=== PATIENT | male | born 1955 | race Caucasian/White ===

== ENCOUNTER → 2023-06-27 | Outpatient (CLI) | payer MEDICARE, BC, SELFPAY ==
[2023-06-29 13:07] LABS: PSA, Free 0.69 ng/mL; PSA, Free % 10.1 % (.)
== END | disposition home or self-care (01) ==
LOC: LAB 14:56
PROVIDERS: PCP Family Medicine; Referring Provider Urology; Visit Provider Urology
DX: R97.20 Elevated prostate specific antigen [PSA] (principal)
CPT/HCPCS: 36415; 84153; 84154

== ENCOUNTER → 2023-08-11 | Outpatient (CLI) | payer MEDICARE, BC, SELFPAY ==
--- NOTE | 2023-08-11 08:00 | PROSBIL_PTH ---
PATIENT: DEENA GIVENS LOC: [facility] U#:[id number] AGE/SX: 68/M ROOM: RE08/11/[address]: Dr. Jaun Pham MD : 1955 BED: DIS: 08/11/2023 SPEC #: [id number] RECD: 08/12/23 10:18 STATUS: VIRGEN REQ #: [id number] CHER: 08/11/23 08:[address]: Jaun Pham DEPT: SURGICAL PATHOLOGY RECD BY: Johanna Graham ENTERED: 08/12/23 10:19 SP TYPE: PROST BX OT DR: Dr. Darvin Acosta MD Tissues: A - PROSTATE RIGHT B - PROSTATE RIGHT C - PROSTATE RIGHT D - PROSTATE LEFT E - PROSTATE LEFT F - PROSTATE LEFT Procedures: PROSTATE BX HEADER OPERATION: Prostate biopsy PRE-OP DIAGNOSIS: Elevated PSA TISSUE SUBMITTED: A - Right apex, B - Right mid, C - Right base, D - Left apex, E - Left mid, F - Left base MICROSCOPIC DIAGNOSIS A. Right prostate, apex, core biopsy: Prostatic adenocarcinoma. [place] grade: 3+3=6 Number of cores involved: 2/2 Proportion of tissue involved: 75% Perineural invasion: Present, focal. Greatest tumor length: 1.0 cm Focal high-grade prostatic intraepithelial neoplasia (HGPIN). Focal basal cell hyperplasia. B. Right prostate, mid, core biopsy: Prostatic adenocarcinoma. [place] grade: 3+3=6 Number of cores involved: 2/2 Proportion of tissue involved: ~25% Perineural invasion: Present, frequent. Greatest tumor length: 0.4 cm Focal high-grade prostatic intraepithelial neoplasia (HGPIN). C. Right prostate, base, core biopsy: Prostatic adenocarcinoma. [place] grade: 3+4=7 Number of cores involved: 2/2 Proportion of tissue involved: ~50% Perineural invasion: Suspected. Greatest tumor length: 0.3 cm D. Left prostate, apex, core biopsy: Atypical small acinar proliferation (YELENA). See comment. E. Left prostate, mid, core biopsy: Atypical small acinar proliferation (YELENA). See comment. F. Left prostate, base, core biopsy: Prostatic tissue, negative for malignancy. SJ:nick 08/16/2023 COMMENT D & E. Immunohistochemistry ([id number]) supports the above diagnosis. Case has been reviewed in consultation with Dr. Tinajero who concurs with the above diagnosis. IDC:AM MICROSCOPIC DESCRIPTION Slides are reviewed. GROSS DESCRIPTION A - Received is one container designated prostate, right apex. The specimen consists of two elongated fragments of light leslie-white soft tissue each measuring 1.5 cm in length and 0.1 cm in diameter. The specimen is totally submitted in one cassette. B - Received is one container designated prostate, right mid. The specimen consists of two elongated fragments of light leslie-white soft tissue each measuring 1.0 cm in length and 0.1 cm in diameter. The specimen is totally submitted in one cassette. C - Received is one container designated prostate, right base. The specimen consists of two elongated fragments of light leslie-white soft tissue each measuring 1.0 cm in length and 0.1 cm in diameter. The specimen is totally submitted in one cassette. D - Received is one container designated prostate, left apex. The specimen consists of two elongated fragments of light leslie-white soft tissue each measuring 0.8 cm in length and 0.1 cm in diameter. The specimen is totally submitted in one cassette. E - Received is one container designated prostate, left mid. The specimen consists of two elongated fragments of light leslie-white soft tissue each measuring 1.0 cm in length and 0.1 cm in diameter. The specimen is totally submitted in one cassette. F - Received is one container designated prostate, left base. The specimen consists of two elongated fragments of light leslie-white soft tissue each measuring 1.0 cm in length and 0.1 cm in diameter. The specimen is totally submitted in one cassette. / AM:nick 08/12/2023 TC:0 [facility]: [id number]
--- NOTE | 2023-08-15 | IMM_PTH ---
PATIENT: DEENA GIVENS LOC: [facility] U#:[id number] AGE/SX: 68/M ROOM: RE08/11/[address]: Dr. Jaun Pham MD : 1955 BED: DIS: 08/11/2023 SPEC #: [id number] RECD: 08/16/23 13:30 STATUS: VIRGEN REQ #: [id number] CHER: 08/15/23 00:[address]: Jaun Pham DEPT: IMMUNOHISTOCHEMISTRY RECD BY: Liat Schneider ENTERED: 08/16/23 13:39 SP TYPE: IMMUNO OTHR DR: Dr. Darvin Acosta MD Tissues: D - PROSTATE LEFT E - PROSTATE LEFT Procedures: 34BE12 (add) P40 (add) P40 (initial) PHYSICIAN & INSTITUTION [place] [id number] SPECIMEN INFORMATION: Tissue Source: D - Left prostate, apex, core biopsy, E - Left prostate, mid, core biopsy Clinical Info: Elevated PSA Specimen Number: [id number] D & E CPT code: 46367, 51245 x3 METHODOLOGY: Deparaffinized sections of prefer/formalin-fixed tissue or PAP/DQ stained slides are incubated with monoclonal/polyclonal antibodies/oligonucleotide probes. Localization is made via biotin free immunoperoxidase method. Appropriate controls are performed and reacted as expected. Results on target cell population are indicated in the following table: RESULTS: ANTIBODY / CLONE RESULT Block D 34BE12 (34BE12) negative P40 (BC28) negative Block E 34BE12 (34BE12) negative P40 (BC28) negative These tests were developed and their performance characteristics determined by [facility]. They may not have been cleared or approved by the U.[place]. Food and Drug Administration. The FDA has determined that such clearance or approval is not necessary. The above immunohistochemical/dualISH markers are ordered and reviewed by the Pathologist. INTERPRETATION: D. Left prostate, apex, core biopsy: Focal atypical small acinar proliferation (YELENA). E. Left prostate, mid, core biopsy: Focal atypical small acinar proliferation (YELENA). SJ:nick 08/17/2023
== END | disposition home or self-care (01) ==
LOC: LABSPEC 15:50
PROVIDERS: PCP Family Medicine; Referring Provider Urology; Visit Provider Urology
DX: R97.20 Elevated prostate specific antigen [PSA] (principal)
CPT/HCPCS: 88305; 88341; 88342; G0416

== ENCOUNTER → 2023-09-08 | Outpatient (CLI) | payer MEDICARE, BC, SELFPAY ==
--- NOTE | 2023-09-08 09:06 | NM_ITS ---
CLINICAL: Male, 68 years old. PROSTATE CA NEW DX -- NO PATIENT COMPLAINTS WHOLE BODY NUCLEAR BONE SCAN TECHNIQUE: Following the IV administration of 26 mCi of Tc MDP, whole body bone imaging was performed with a gamma camera following a three hour delay. COMPARISON STUDIES : NM - None. CR - Not available for review at this time. CT - Not available for review at this time. MR - Not available for review at this time. US - Not available for review at this time. FINDINGS: Mild increased radiopharmaceutical uptake at the level of the knee joint suggestive of concentration is seen on the left side of the symphysis pubis most likely due to urine contamination. Degenerative change. Increased radiopharmaceutical NM/Bone Scan Whole Body IMPRESSION: No definite evidence of metastatic disease. Electronically Signed: Mg Donato MD at 13:51 EST ,
== END | disposition home or self-care (01) ==
LOC: NM 09:00
PROVIDERS: PCP Family Medicine; Referring Provider Urology; Visit Provider Urology
DX: C61 Malignant neoplasm of prostate (principal); R97.20 Elevated prostate specific antigen [PSA]
CPT/HCPCS: 78306; A9503

== ENCOUNTER → 2023-09-09 | Outpatient (CLI) | payer MEDICARE, BC, SELFPAY ==
--- NOTE | 2023-09-09 13:15 | CT_ITS ---
STUDY: CT ABDOMEN AND PELVIS WITH AND WITHOUT CONTRAST REASON FOR EXAM: Male, 68 years old. PROSTATE CA RADIATION DOSAGE (If Supplied By Facility): CTDIvol = ( 24.64 ) mGy, DLP = ( 4296.46 ) mGycm TECHNIQUE: Transaxial images were obtained from the dome of the diaphragm to the symphysis pubis without oral contrast. IV 100mL Isovue-300 was administered. Sagittal and coronal images were reconstructed. Individualized dose optimization techniques were used for this CT. COMPARISON: None. FINDINGS: Minimal linear scarring at the lung bases. The visualized portions of the heart are within normal limits. There is decreased attenuation of the liver consistent with steatosis. Normal gallbladder and extrahepatic biliary system. Normal spleen. Normal pancreas. Normal bilateral adrenal glands. Normal right kidney. There is a 9.2 cm x 9.5 cm cyst in the lateral inferior pole of the left kidney. Normal visualized stomach. Normal small intestine. Normal colon. The appendix is visualized and appears normal. Normal abdominal aorta. Normal inferior vena cava. Normal retroperitoneum. Small volume urinary bladder with the thickened wall. There is enlargement of the prostate gland. The prostate measures 4.7 cm x 4.6 cm. Moderate left inguinal hernia containing fat. There is a 2.6 x 3.7 cm fatty lesion in the anterior muscle group in the right proximal thigh. There are diffuse degenerative changes of the visualized lumbar spine. CT/CT Abd/Pelvis W/WO Contrast IMPRESSION: Fatty infiltration of the liver. Left renal cyst. Left M1 artery containing fat. Electronically Signed: Mg Donato MD at 14:02 EST ,
[2023-09-09 13:30] LABS: CREATININE FINGERSTICK 1.2 mg/dL (0.70-1.30); EGFR FINGERSTICK > 60.0000 mL/min (>60)
== END | disposition home or self-care (01) ==
LOC: CT 12:59
PROVIDERS: PCP Family Medicine; Referring Provider Urology; Visit Provider Urology
DX: C61 Malignant neoplasm of prostate (principal)
CPT/HCPCS: 74178; Q9967

== ENCOUNTER 2023-10-12 05:38 | Day surgery (SDC) | payer MEDICARE, BC, SELFPAY ==
[2023-09-30 09:36] LABS: Hematocrit 52.6 % (40-54); Hemoglobin 17.8 g/dL (13.0-16.5); Mean Corp Hgb Conc 33.8 g/dL (32-36); Mean Corpuscular Volume 88.7 fL (80-94); Mean Platelet Vol. 8.8 fl (6.2-12.0); Platelet Count 214 K/mm3 (150-450); RBC Distribution Width CV 12.8 % (11.6-14.6); RBC Distribution Width SD 41.5 fl (35.1-43.9); Red Blood Count 5.93 M/mm3 (4.6-6.2); White Blood Count 5.6 K/mm3 (4.4-11.0)
[2023-10-12] VITALS (13 sets, daily range): BP systolic 103–132; BP diastolic 69–84; PULSE 68–87; RESP 12–96; TEMP 36.2–36.7; O2SAT 18–98; BMI 38.5; BMI 38.4
--- OUTSIDE RECORDS SUMMARY | 2023-10-12 05:48 | XMS RPT_ITS | CCD ---
Author Name Unknown Address [id number] [place] [address] Organization [facility] Care Team Providers Care Seismograph Operator Name Role Phone Sukhjinder Valle MD Unavailable AURA MCBRIDE MD Primary Care Unavailable AURA MCBRIDE MD Admitting Unavailable AURA SANCHEZ Referring Unavailable AURA SANCHEZ Consulting Unavailable AURA MCBRIDE MD Attending Unavailable PROVIDER, UNKNOWN Consulting Unavailable PROVIDER, UNKNOWN Consulting Unavailable PROVIDER, UNKNOWN Consulting Unavailable AURA SANCHEZ Attending Unavailable AURA SANCHEZ Consulting Unavailable AURA SANCHEZ Primary Care Unavailable AURA SANCHEZ Admitting Unavailable PROVIDER, UNKNOWN Consulting Unavailable PROVIDER, UNKNOWN Consulting Unavailable PROVIDER, UNKNOWN Consulting Unavailable Dave TRAN, Darvin Hernández Unavailable Briana TRAN, Dr. Jaime Inman Unavailable Ankit TRAN, [facility] Unavailable [facility], . Unavailable Dr. Sukhjinder Valle MD Unavailable Dr. Jeremi Lee MD Unavailable [phone] Markel BICYCLE REPAIRER, Annetta Unavailable Leon Nicolas MD Unavailable Gogoi (scribe), Hemanta Unavailable Unavaila Maira Reyes LPN Unavailable Unavailable Aura Sanchez MD Unavailable Alyse Grajeda Unavailable Unavailable Braeden SAENZ, Mikki Unavailable Unavailable Vickie WOODY, Riana Hernández Unavailable Unavaila yin Orr RN, Serenity Vela Unavailable Unavailable Pooja SAENZ, Kristine K Unavailable Unavai nancy REIDC, Rina Skaggs Unavailable Ángel Frausto), Je Unavailable Unavailab le Richert BICYCLE REPAIRER, Namrata Crys Unavailable Unavailab le Edy BICYCLE REPAIRER, Ana Paula Caballero Unavailable Unavailab le Newington BICYCLE REPAIRER, Daxa Dyer Unavailable Unavailab le Wengerd BICYCLE REPAIRER, Jeannine Unavailable Unavailabl e Pia BICYCLE REPAIRER, Gillian Medina Unavailable Unavaila ble Unavailable Unavailable Allergies Allergy Classification Reported Allergen(s) Allergy Type Date of Onset Reaction(s) Facility (1 source) Cat; Translations: [CATS] allergy to substance 0 [facility] Work Phone: (1 source) [employer]; Translations: [ANIMALS] allergy to substance 0 [facility] Work Phone: Medications Current Medications Medication Drug Class(es) Dates Sig (Normalized) Sig (Original) dextroamphetamine sulfate 10 mg extended release oral capsule (15 sources) Central Nervous System Stimulant Start: 09-07-2023 dextroamphetamine sulfate ER 10 mg capsule,extended release ; 1 (one) Capsule daily for 0 days Quantity: 30 {Capsule} Refills: 0 Ordered: 07-Sep-2023 MD Darvin Acosta Start: 07-Sep-2023 Completed/Discontinued Medications Medication Drug Class(es) Dates Sig (Normalized) Sig (Original) azithromycin 500 mg oral tablet (20 sources) Macrolide Antimicrobial Start: 11-14-2017 End: 11-17-2017 take 1 tablet by mouth once daily Azithromycin 500 MG Oral Tablet ; 1 (one) Tablet daily for 3 days Quantity: 3 {Tablet} Refills: 0 Ordered: 14-Nov-2017 MD Aura Sanchez Start: 14-Nov-2017 End: 17-Nov-2017 Status: Inactive Problems Active Problems Problem Classification Problem Date Documented Da te Episodic/Chronic Acute bronchitis (20 sources) Acute bronchitis; Translations: [Acute bronchitis, unspecified] 09-02-2016 Episodic Administrative/social admission (20 sources) Issue of repeat prescriptions 11-05-2014 Episodic Diabetes mellitus without complication (20 sources) Type 2 diabetes mellitus without complication; Translations: [Type 2 diabetes mellitus without complications] 08-10-2023 Chronic Past or Other Problems Problem Classification Problem Date Documented Da te Episodic/Chronic Diabetes mellitus without complication (1 source) Diabetes mellitus without complication 05-24-2022 Unclassified (1 source) Problem Unclassified (7 sources) cotton in ear - Pt was cleaning his ear and a piece of cotton got stuck in his ear. Pt denies it being painful or having any symptoms. 08-10-2023 Unclassified (6 sources) Well adult male - The patient feels well with no complaints, has decreased energy level and is sleeping well. The patient has a balanced diet. The patient does not exercise. The patient sleeps 7 (7-8) hours per night. Note for Well adult male : -Dr Lee treated for squamous cell carcinoma. 05-24-2022 Unclassified (6 sources) [ADDITIONAL REASON] [facility] Routine follow-up - The patient is here for follow-up of diabetes, obesity and narcolepsy. The patient always takes the prescribed medications. No side effects noted. (6 days a week- he isnt taking it on Tuesday) The patient has low activity level and no regular program. 05-24-2022 Unclassified (7 sources) [facility] Routine follow-up - The patient is here for follow-up of diabetes, obesity and narcolepsy. The patient always takes the prescribed medications. No side effects noted. (6 days a week- he isnt taking it on Tuesday) The patient has low activity level and no regular program. Note for Routine chronic follow-up : -transfer of care from [facility].He recently started an otc product for glucose control but does not know what it is called. 09-07-2021 Unclassified (7 sources) Well adult male - The patient feels well with no complaints, has decreased energy level and is sleeping well. The patient has a balanced diet. The patient does not exercise. The patient sleeps 7 (7-8) hours per night. Note for Well adult male : [place] 09/16/20labs printed 11-05-2020 Unclassified (7 sources) Back pain - The back pain has been occurring in a persistent pattern for 1 month (has had lower back issues for years). The course has been constant. The pain is characterized as a dull ache. The pain is located in the lower back (right side) and radiates to the right thigh. The symptoms are relieved by NSAIDs (ibuprofen). There has been no associated history of back surgery. Note for Back pain : Been seeing Dr. Genao for the back pain.--he recommended prednisone.Would like refill on medication today. 02-29-2020 Unclassified (7 sources) Well adult male - The patient feels well with minor complaints (has a cough), has good energy level and is sleeping well. The patient has a balanced diet and takes supplemental vitamins. The patient does not exercise. The patient sleeps 6 hours per night. Note for Well adult male : [place] 03/06/19labs printed 09-13-2019 Unclassified (7 sources) form completion - Patinet in for evaluation of cpap.Uses regularly with no issues. Tolerating well at the present. 10-12-2018 Unclassified (7 sources) Well Adult, male - The patient feels well with no complaints, has decreased energy level and is sleeping well. The patient has a balanced diet and takes supplemental vitamins. The patient does not exercise. The patient sleeps 7 hours per night. Note for Well Adult, male : Patient had his colonoscopy back in 2016.His blood pressure today is good 139/90. Otherwise, no other questions or concerns. 09-07-2018 Unclassified (7 sources) Cold Symptoms - Symptoms include dry cough, but do not include sneezing, nasal congestion, runny nose, ear pain, ear fullness, sore throat, fever, chills or general malaise. The onset was sudden 1 month(s) ago. The symptoms occur constantly. The patient describes this as moderate in severity and worsening. Current treatment includes cough suppressants (has been using cough drops). Patient denies history of seasonal allergies or asthma. 11-14-2017 Unclassified (7 sources) Cold Symptoms - Symptoms include nasal congestion, runny nose, dry cough and productive cough, but do not include ear pain, ear fullness, sore throat, scratchy throat, fever or headache. The onset was gradual 1 week(s) ago. The symptoms occur constantly. The patient describes this as moderate in severity and worsening. Current treatment includes an oral decongestant. Risk factors do not include child in daycare or smoking. The patient has not been exposed to an individual with a cough, an individual with an upper respiratory infection, an individual with similar symptoms or an individual with strep. 04-07-2017 Unclassified (7 sources) Well Adult, male - The patient feels well with no complaints, has good energy level and is sleeping well. The patient has a balanced diet and takes supplemental vitamins. The patient exercises weekly. The patient sleeps 8 hours per night. 09-02-2016 Unclassified (7 sources) Cold Symptoms - Symptoms include nasal congestion, runny nose, sore throat, scratchy throat, dry cough, productive cough and headache, but do not include fever. The onset was gradual 1 week(s) ago. The symptoms occur constantly. The patient describes this as moderate in severity and worsening. The patient is not currently being treated for this problem. Risk factors do not include child in daycare or smoking. Note for Upper respiratory infection : was on an overseas trip 03/06/16-03/14/16 03-24-2016 Unclassified (7 sources) Well Adult, male - The patient feels well with no complaints, has decreased energy level and is sleeping well. The patient has a balanced diet and takes supplemental vitamins. The patient does not exercise. The patient sleeps 7 hours per night. 06-16-2015 Unclassified (7 sources) Well Adult, male - The patient feels well with minor complaints (Concerned about increased shortness of breath upon exertion.), has decreased energy level and is sleeping well (Uses CPAP [place] nightly.). The patient has a balanced diet and takes supplemental vitamins. The patient does not exercise. The patient sleeps 7 hours per night. 09-25-2013 Unclassified (7 sources) Well Adult, male - The patient feels well with no complaints, has good energy level and is sleeping well. Date of most recent cholesterol screening : (03/27/12). Date of most recent glucose screening : (03/27/12). Date of Zostavax : (01/11/11). Patient has not had a Pneumovax vaccine. Patient has not received a recent influenza vaccine. Last Tetanus booster: Date: (02/09/2008). The patient has a balanced diet (recent garcia diet and has lost 12-13# in past month) and takes supplemental vitamins. Patient exercises weekly (walking, biking, skiing). Patient sleeps 7 hours per night. 03-31-2012 Unclassified (7 sources) Well adult male - The patient feels well with minor complaints (Cold symptoms. Runny nose, slight productive cough for 3 days.), has decreased energy level and is sleeping well. Date of most recent cholesterol screening : (01-07-11). Date of most recent glucose screening : (01-07-11). Patient has not had a Zostavax vaccine. Patient has not had a Pneumovax vaccine. Last Tetanus booster: Date: (). The patient has a balanced diet and takes supplemental vitamins. Patient exercises none (Had started walking 2 miles 3 times per week but is not consistant). Patient sleeps 7 hours per night. Note for Well adult male : Complains of occasional shortness of breath. 01-12-2011 Unclassified (1 source) [ADDITIONAL REASON] Well adult male - The patient feels well with no complaints, has decreased energy level and is sleeping well. The patient has a balanced diet. The patient does not exercise. The patient sleeps 7 (7-8) hours per night. Note for Well adult male : -Dr Lee treated for squamous cell carcinoma. 05-24-2022 Results Test Name Value Interpretation Reference Range Facil ity Vital Signs Date Time Vital Sign Value Performing Clinician Faci lity 08-10-2023 13:46-0500 Body height 179.07 cm [facility] [employer] 08-10-2023 13:46-0500 Body mass index (BMI) [Ratio] 39.04 kg/m2 Ana Paula Snow LPN [facility] [employer] 08-10-2023 13:46-0500 Body surface area Derived from formula 2.41 m2 Ana Paula Snow LPN [facility] [employer] 08-10-2023 13:46-0500 Body weight 125.19 kg Ana Paula Snow LPN [facility] [employer] 08-10-2023 13:46-0500 Diastolic blood pressure 82 mm[Hg] Ana Paula Snow LPN [facility] [employer] Encounters Encounter Date Encounter Type Care Provider Facility Start: 09-29-2023 End: 09-29-2023 Ale Acosta MD Work Phone: [facility] Start: 08-10-2023 End: 08-10-2023 Patient encounter procedure Darvin Acosta MD Work Phone: [facility] Start: 06-06-2023 End: 06-06-2023 Patient encounter procedure Darvin Acosta MD Work Phone: [facility] Start: 06-06-2023 End: 06-06-2023 Physical examination Darvin Acosta MD Work Phone: [facility]; [employer] Start: 05-23-2023 End: 05-25-2023 Orders Darvin Acosta MD Work Phone: [facility] Start: 04-29-2023 End: 04-29-2023 Orders Darvin Acosta MD Work Phone: [facility] Start: 04-20-2023 End: 04-20-2023 Orders Darvin Acosta MD Work Phone: [facility] Start: 11-01-2022 End: 11-01-2022 Office outpatient visit 25 minutes Darvin Acosta MD Work Phone: [facility] Start: 05-24-2022 End: 05-19-2022 Historical Summary Darvin Acosta MD Work Phone: [employer] Start: 05-24-2022 End: 05-24-2022 Patient encounter procedure Darvin Acosta MD Work Phone: [facility] Start: 05-24-2022 End: 05-24-2022 Patient encounter status Darvin Acosta MD Work Phone: [facility]; [employer]. Start: 05-17-2022 End: 05-17-2022 Orders Darvin Acosta MD Work Phone: [facility] Start: 05-14-2022 End: 09-16-2022 Historical Summary Darvin Acosta MD Work Phone: [facility] Start: 09-07-2021 End: 09-07-2021 Patient encounter procedure Darvin Acosta MD Work Phone: [employer] Start: 11-05-2020 End: 11-05-2020 Patient encounter procedure AURA SANCHEZ [facility] Start: 10-30-2020 End: 11-05-2020 Patient encounter status Darvin Acosta MD Work Phone: [facility]; [facility] Start: 10-30-2020 End: 11-05-2020 Periodic preventive med est patient 40-64yrs Darvin Acosta MD Work Phone: [employer] Start: 10-23-2020 End: 10-23-2020 Orders Darvin Acosta MD Work Phone: [employer] Start: 09-16-2020 End: 09-17-2020 Patient encounter procedure Darvin Acosta MD Work Phone: [employer] Start: 05-06-2020 End: 05-06-2020 Orders Darvin Acosta MD Work Phone: [employer] Start: 04-04-2020 End: 04-04-2020 Patient encounter procedure Sukhjinder Valle MD Work Phone: [facility] Work Phone: Start: 03-11-2020 End: 03-11-2020 Office outpatient visit 15 minutes Darvin Acosta MD Work Phone: [employer] Start: 03-06-2020 End: 03-06-2020 Telephone follow-up Darvin Acosta MD Work Phone: [employer] Start: 03-03-2020 End: 03-04-2020 Patient encounter procedure AURA MCBRIDE [facility] Start: 02-28-2020 End: 02-29-2020 Office outpatient visit 25 minutes Darvin Acosta MD Work Phone: [employer] Start: 09-11-2019 End: 09-13-2019 Patient encounter status Darvin Acosta MD Work Phone: [employer]; [employer]. Start: 09-11-2019 End: 09-13-2019 Periodic preventive med est patient 40-64yrs Darvin Acosta MD Work Phone: [employer]. Start: 09-03-2019 End: 09-06-2019 Orders Darvin Acosta MD Work Phone: [employer] Start: 08-03-2019 End: 08-08-2019 Orders Darvin Acosta MD Work Phone: [employer] Start: 03-06-2019 End: 03-06-2019 Office outpatient visit 25 minutes Darvin Acosta MD Work Phone: [employer] Start: 10-12-2018 End: 10-12-2018 Office outpatient visit 15 minutes Darvin Acosta MD Work Phone: [employer] Start: 09-07-2018 End: 09-07-2018 Periodic preventive med est patient 40-64yrs Darvin Acosta MD Work Phone: [employer] Start: 09-07-2018 End: 09-07-2018 Physical examination Darvin Acosta MD Work Phone: [employer]; [employer]. Start: 08-31-2018 End: 08-31-2018 Orders Darvin Acosta MD Work Phone: [employer] Start: 08-11-2018 End: 08-11-2018 Orders Darvin Acosta MD Work Phone: [employer] Start: 11-14-2017 End: 11-14-2017 Office outpatient visit 15 minutes Darvin Acosta MD Work Phone: [employer] Start: 09-16-2017 End: 09-23-2017 Historical Summary Darvin Acosta MD Work Phone: [employer] Start: 09-16-2017 End: 09-23-2017 Patient encounter status Darvin Acosta MD Work Phone: [employer]; [employer]. Start: 09-16-2017 End: 09-23-2017 Periodic preventive med est patient 40-64yrs Darvin Acosta MD Work Phone: [employer]. Start: 09-09-2017 End: 09-09-2017 Orders Darvin Acosta MD Work Phone: [employer] Start: 08-31-2017 End: 08-31-2017 Orders Darvin Acosta MD Work Phone: [employer] Start: 04-07-2017 End: 04-07-2017 Office outpatient visit 15 minutes Darvin Acosta MD Work Phone: [employer] Start: 09-02-2016 End: 09-02-2016 Patient encounter procedure Darvin Acosta MD Work Phone: [employer] Start: 09-02-2016 End: 09-02-2016 Patient encounter status Darvin Acosta MD Work Phone: [employer]; [employer]. Start: 08-09-2016 End: 08-09-2016 Orders Darvin Acosta MD Work Phone: [employer] Start: 03-23-2016 End: 03-24-2016 Office outpatient visit 15 minutes Darvin Acosta MD Work Phone: [employer] Start: 11-13-2015 End: 11-13-2015 Medication Darvin Acosta MD Work Phone: [employer] Start: 06-16-2015 End: 06-16-2015 Patient encounter procedure Darvin Acosta MD Work Phone: [employer]; [employer]. Start: 06-16-2015 End: 06-16-2015 Periodic preventive med est patient 40-64yrs Darvin Acosta MD Work Phone: [employer] Start: 06-09-2015 End: 06-09-2015 Orders Darvin Acosta MD Work Phone: [employer] Start: 05-22-2015 End: 05-22-2015 Orders Darvin Acosta MD Work Phone: [employer]. Start: 11-05-2014 End: 11-05-2014 Medication Darvin Acosta MD Work Phone: [employer] Start: 04-22-2014 End: 04-22-2014 Medication Darvin Acosta MD Work Phone: [employer] Start: 03-13-2014 End: 03-13-2014 Medication Darvin Acosta MD Work Phone: [employer] Start: 09-25-2013 End: 09-25-2013 Patient encounter procedure Darvin Acosta MD Work Phone: [employer] Start: 09-25-2013 End: 09-25-2013 Patient encounter status Darvin Acosta MD Work Phone: [employer]; [employer]. Start: 09-19-2013 End: 09-20-2013 Orders Darvin Acosta MD Work Phone: [employer]. Start: 09-13-2013 End: 09-13-2013 Orders Darvin Acosta MD Work Phone: [employer] Start: 11-21-2012 End: 11-21-2012 Historical Summary Darvin Acosta MD Work Phone: [employer] Start: 05-15-2012 End: 05-15-2012 Medication Darvin Acosta MD Work Phone: [employer] Start: 03-31-2012 End: 03-31-2012 Patient encounter procedure Darvin Acosta MD Work Phone: [facility] Start: 03-31-2012 End: 03-31-2012 Routine general medical examination at a health care facility Darvin Acosta MD Work Phone: [facility]; [employer]. Start: 03-22-2012 End: 03-24-2012 Orders Darvin Acosta MD Work Phone: [facility]. Start: 05-28-2011 End: 05-28-2011 Orders Darvin Acosta MD Work Phone: [employer]. Start: 01-22-2011 End: 01-22-2011 Medication Darvin Acosta MD Work Phone: [facility]. Start: 01-11-2011 End: 01-12-2011 Patient encounter procedure Darvin Acosta MD Work Phone: [facility] Start: 01-11-2011 End: 01-12-2011 Routine general medical examination at a health care facility Darvin Acosta MD Work Phone: [employer]; [employer]. Start: 12-15-2010 End: 12-15-2010 Orders Darvin Acosta MD Work Phone: [facility] Start: 10-09-2010 End: 10-09-2010 Nursing evaluation of patient and report Darvin Acosta MD Work Phone: [facility]. Start: 10-05-2010 End: 10-05-2010 Medication Darvin Acosta MD Work Phone: [facility]. Start: 05-19-2010 End: 05-19-2010 Medication Darvin Acosta MD Work Phone: [facility]. Patient encounter procedure Kristine Patton BICYCLE REPAIRER [facility]. Patient encounter status Mikki Deras BICYCLE REPAIRER [facility]. Patient encounter status Maira Barron BICYCLE REPAIRER [facility].; [facility] Patient encounter status Annetta Jean Baptiste LPN Work Phone: [facility] Physical examination Annetta vela LPN Work Phone: [facility] Physical examination Hemanta Gogoi (scrib e) [facility] Procedures Date Procedure Procedure Detail Performing Clinician Start: 06-06-2023 End: 06-06-2023 Adv care pln/ no alt dcsn mkr docd or refusal Darvin Acosta MD Work Phone: Start: 06-06-2023 End: 06-06-2023 Depression screening Darvin Acosta MD Work Phone: Start: 06-06-2023 End: 06-06-2023 Falls risk assessment documented Darvin Acosta MD Work Phone: Start: 06-06-2023 End: 06-06-2023 Flu immunize order/admin Darvin corea MD Work Phone: Start: 06-06-2023 End: 06-06-2023 Initial preventive exam Darvin kirby MD Work Phone: Start: 06-06-2023 End: 06-06-2023 Most recent diastolic blood pressure 80-89 mm hg Darvin Acosta MD Work Phone: Start: 06-06-2023 End: 06-06-2023 Most recent hemoglobin a1c level < 7.0% Darvin Acosta MD Work Phone: Start: 06-06-2023 End: 06-06-2023 Most recent systolic blood press 130-139mm hg Darvin Acosta MD Work Phone: Start: 06-06-2023 End: 06-06-2023 Pt falls assess docd w/o fall/injury past year Darvin Acosta MD Work Phone: Start: 06-06-2023 End: 06-06-2023 Scr dep neg, no plan reqd Darvin carson MD Work Phone: Start: 06-06-2023 End: 06-06-2023 Screening test visual acuity quantitative bilat Darvin Acosta MD Work Phone: Start: 05-23-2023 End: 05-23-2023 Hemoglobin A1c/Hemoglobin.total in Blood Annetta Jean Baptiste LPN Work Phone: Plan of Treatment Date Care Activity Detail Author Start: 04-04-2020 End: 04-04-2020 [facility]ment [facility] Work Phone: Start: 09-11-2019 Provider Instruction s for Treatment [facility] [employer], [employer] Immunizations Immunization Date Immunization Notes Care Provider Wendy [email or web address] 06-06-2023 Pneumococcal conjugate, 20 valent (PCV20) Darvin Acosta MD Work Phone: [facility] [employer] Payers Date Payer Category Payer Unknown [id number] 1955 Unknown [id number] [facility] [id number] Social History Date Type Detail Facility Start: 04-04-2020 End: 04-04-2020 Assertion Unknown if ever smoked [facility] Work Phone: Alcohol Use: Alcohol Use: ; Occasional alcohol use. [employer] Caffeine Use Caffeine Use [facility].; [employer], [employer] Exercise History: Exercise Histo ry: ; Inactive. [employer] Tobacco Use: Tobacco Use: ; N ever smoker. [employer] Male [employer] Work Phone: Occasional alcohol use [facility] Work Phone: Never smoked tobacco [employer]; [employer] Work Phone: NEGATED: Highlighted rowStart: 04-04-2020 End: 04-04-2020 Employment detail Employment detail [facility] Work Phone: Chief Complaint Chief Complaint Description Start Date lower back pain Preliminary chief co mplaint data, not yet signed by the author as of Instructions Instruction Description Start Date CompletedPatient advised to follow-up with Primary Care Physician for BMI management. Advance Directives There may be information available, but it has not been provided by the sender. No Advanced Directives Records FoundNo Advanced Directives Records Found Assessments There may be information available, but it has not been provided by the sender. Review of System There may be information available, but it has not been provided by the sender. Family History Arthritis Status:Active Comments:grandmo ther Cancer Status:Active Comments:Father. prostate (grandparents- colon cancer) Diabetes Mellitus Status:Active Comments:Famil y Members In General. Father Status:Active Comments: d. Prostate cancer, [place] Heart Disease Status:Active Comments:Father. Hypertension Status:Active Comments:Mother. Father. Mother Status:Active Comments:In stab le health. age 90 (as of 05/24/2022) Arthritis Status:Active Comments:grandmo ther Cancer Status:Active Comments:Father. prostate (grandparents- colon cancer) Diabetes Mellitus Status:Active Comments:Famil y Members In General. Father Status:Active Comments: d. Prostate cancer, [place] Heart Disease Status:Active Comments:Father. Hypertension Status:Active Comments:Mother. Father. Mother Status:Active Comments:In [facility]. age 90 (as of 05/24/2022) Arthritis Status:Active Comments:grandmo ther Cancer Status:Active Comments:Father. prostate (grandparents- colon cancer) Diabetes Mellitus Status:Active Comments:Famil y Members In General. Father Status:Active Comments: d. Prostate cancer, [place] Heart Disease Status:Active Comments:Father. Hypertension Status:Active Comments:Mother. Father. Mother Status:Active Comments:In [facility]. age 90 (as of 05/24/2022) Arthritis Status:Active Comments:grandmo ther Cancer Status:Active Comments:Father. prostate (grandparents- colon cancer) Diabetes Mellitus Status:Active Comments:Famil y Members In General. Father Status:Active Comments: d. Prostate cancer, [place] Heart Disease Status:Active Comments:Father. Hypertension Status:Active Comments:Mother. Father. Mother Status:Active Comments:In [place]. age 90 (as of 05/24/2022) Arthritis Status:Active Comments:grandmo ther Cancer Status:Active Comments:Father. prostate (grandparents- colon cancer) Diabetes Mellitus Status:Active Comments:Famil y Members In General. Father Status:Active Comments: d. Prostate cancer, [place] Heart Disease Status:Active Comments:Father. Hypertension Status:Active Comments:Mother. Father. Mother Status:Active Comments:In [place]. age 90 (as of 05/24/2022) Arthritis Status:Active Comments:grandmo ther Cancer Status:Active Comments:Father. prostate (grandparents- colon cancer) Diabetes Mellitus Status:Active Comments:Famil y Members In General. Father Status:Active Comments: d. Prostate cancer, [place] Heart Disease Status:Active Comments:Father. Hypertension Status:Active Comments:Mother. Father. Mother Status:Active Comments:In [place]. age 90 (as of 05/24/2022) Arthritis Status:Active Comments:grandmo ther Cancer Status:Active Comments:Father. prostate (grandparents- colon cancer) Diabetes Mellitus Status:Active Comments:Famil y Members In General. Father Status:Active Comments: d. Prostate cancer, [place] Heart Disease Status:Active Comments:Father. Hypertension Status:Active Comments:Mother. Father. Mother Status:Active Comments:In [place]. age 90 (as of 05/24/2022) History of Present Illness There may be information available, but it has not been provided by the sender. Summary Purpose Additional Source Comments Reason for Visit (unrecogniz ed section and content) (unrecognized sect ion and content) No Status Records FoundNo Status Records Found INFORMATION SOURCE (unrecogn ized section and content) DATE CREATED AUTHOR AUTHOR'S ORGANIZ ATION 06/08/2023 [facility] FOR RECORDS PERTAINING TO PATIENTS WHO ARE OR HAVE BEEN ENROLLED IN A CHEMICAL DEPENDENCY/SUBSTANCEABUSE PROGRAM, SOME INFORMATION MAY BE OMITTED. This clinical summary was aggregated from multiple sources. Caution should be exercised in using it in the provision of clinical care. This summary normalizes information from multiple sources, and as a consequence, information in this document may materially change the coding, format and clinical context of patient data. In addition, data may be omitted in some cases. CLINICAL DECISIONS SHOULD BE BASED ON THE PRIMARY CLINICAL RECORDS. [facility]. provides no warranty or guarantee of the accuracy or completeness of information in this document.
[2023-10-12] MEDS: Lactated Ringers 1,000 ML 15 ML IV (06:38)
--- NOTE | 2023-10-12 07:17 | PCM.HP.STD ---
HPI - General General Date of Service: 10/12/23 Chief Complaint: Prostate cancer HPI Narrative DEENA GIVENS, is a 68 M who presents for treatment for prostate cancer with a robotic prostatectomy. We discussed the risk and benefits of the surgery please see my office notes for full details. Patient is prepped for surgery all questions answered and discussed. [facility] Medical History (Updated 09/29/23 @ 15:16 by Chayo Garvin) Alcohol use Back pain Bladder disease Cancer Claustrophobia CPAP (continuous positive airway pressure) dependence Diabetes History of stress test Nail fungus Narcolepsy Non-smoker Shortness of breath on exertion Wears glasses Wears hearing aid Home Medications dextroamphetamine sulfate 10 mg capsule,extended release 10 mg PO DAILY 09/29/23 [History Last Taken 10/11/23] Allergy/AdvReac Type Severity Reaction Status Date / Time No Known Allergies Allergy Verified 10/12/23 06:31 Surgical History (Updated 09/29/23 @ 15:10 by Chayo Garvin) History of prostate biopsy Hx of colonoscopy Hx of tonsillectomy Social History Smoking Status: Never smoker Vital Signs Vital Signs Vital Signs: 10/12/23 06:32 10/12/23 06:32 Temperature 98.1 F Temperature Source Temporal Pulse Rate 70 Respiratory Rate 16 Respiratory Pattern Normal Blood Pressure 126/81 H Blood Pressure Mean 96 Blood Pressure Source Monitor Blood Pressure Position Semi-Fowlers Blood Pressure Location Right Arm Pulse Ox 98 Oxygen Delivery Method Room Air Weight Weight: 122 kg Body Mass Index (BMI) 38.5 Results Lab / Micro Data 09/30/23 08:45
--- NOTE | 2023-10-12 07:20 | DCINST_ITS ---
Discharge Instructions Diet Discharge Diet: No restrictions Activity Discharge Activity: Return to Normal Activity and May Not Drive (while taking narcotic pain medications.) Dressing / Incision Call your doctor if you observe: Fever of 101 or Higher Catheter: Galarza to leg bag and Galarza to large bag Drain: Jackson Follow Up Care Please Follow Up With: Jaun Pham MD When: Call [phone] for an appointment Test Results: Test results from this visit will be discussed in further detail at your follow- up appointment, if applicable. Discharge Plan Admission Primary Reason for Your Visit: Radical prostatectomy Attending Provider: Jaun Pham Primary Care Provider: Darvin Acosta Discharge Orders/Prescriptions Prescriptions: New ciprofloxacin HCl [Cipro] 500 mg tablet 500 mg PO BID Qty: 14 0RF docusate sodium [Colace] 100 mg capsule 100 mg PO BID Qty: 20 0RF oxycodone 5 mg tablet 5 mg PO Q6H PRN (Reason: pain) 7 Days Qty: 14 0RF No Action dextroamphetamine sulfate 10 mg capsule, extended release 10 mg PO DAILY Patient Comments: TAKE ONE CAPSULE BY MOUTH DAILY Referrals / Follow Up: Jaun Pham MD [Med Staff - Active Staff] - Darvin Acosta MD [Primary Care Provider] - Disposition Disposition (needs filled in before D/C Order can be placed): Home, Self Care
--- NOTE | 2023-10-12 07:30 | PROST_PTH ---
PATHOLOGY RESULTS PATIENT: DEENA GIVENS LOC: [facility] U#:[id number] AGE/SX: 68/M ROOM: RE10/12/[address]: Dr. Jaun Pham MD : [id number] BED: DIS: 10/13/2023 SPEC #: [id number] RECD: 10/12/23 13:15 STATUS: VIRGEN REHaider #: [id number] CHER: 10/12/23 07:[address]: Jaun Pham DEPT: SURGICAL PATHOLOGY RECD BY: Johanna Graham ENTERED: 10/13/23 08:52 SP TYPE: PROSTATE OTHR DR: Dr. Darvin Acosta MD Tissues: Soft tissues of pelvis, NOS Lymph node of pelvis, NOS Lymph node of pelvis, NOS Prostate, NOS Procedures: Surgery Specimen Level IV Surgery Specimen Level HEADER OPERATION: Lap robotic prostatectomy PRE-OP DIAGNOSIS: Prostate cancer TISSUE SUBMITTED: A - Fat over prostate, B - Left pelvic lymph node, C - Right pelvic lymph node, D - Prostate MICROSCOPIC DIAGNOSIS A. Fat over prostate: Adipose tissue, negative for carcinoma. B. Left pelvic lymph node, regional dissection: Nine out of none lymph nodes, negative for metastatic carcinoma. C. Right pelvic lymph node, regional dissection: Two out of two lymph nodes, negative for metastatic carcinoma. D. Prostate, radical prostatectomy: Prostatic adenocarcinoma. See cancer summary in the comment section. SJ:nick 10/17/2023 COMMENT D. PROSTATE CANCER (RADICAL) SUMMARY: Procedure: Radical Prostatectomy Prostate Size: Weight: 53.5 gm Size: 4 cm transversely, 3.5 cm anterior-posteriorly and 4 cm craniocaudally Histologic Type: Acinar adenocarcinoma Histologic Grade: Grade group 2 (Kavon score 3+4=7) Tumor Quantitation: Percentage of prostate involved by tumor: ~20% Tumor size: The tumor involves both right and left lobe, predominantly right lobe. The tumor in the right lobe is present predominantly in the apical and mid portion, and focally in the basal portion of prostate and measures about 2.8 x 1.5 x 1.0 cm (measured microscopically). Tumor in the left lobe is focally present in the apical portion of the prostate and measures 0.6 x 0.3 cm (measured microscopically). Extraprostatic Extension: Not identified Urinary Bladder Neck Invasion: Not identified Seminal Vesicle Invasion: Not identified Lymphvascular Invasion: Not identified Perineural Invasion: Present, frequent Margins: Margins focally involved by invasive carcinoma. Length of positive margin: 1.5 x 1.0 cm Focality: Unifocal Location of positive margin: Right apical Kavon pattern at the positive margin. pattern 3. Treatment Effect: No known presurgical therapy. Regional Lymph Nodes: Number of lymph nodes involved by carcinoma: 0 Total number of lymph nodes examined: 11 Additional Pathologic Findings: - Focal high-grade prostatic intraepithelial neoplasia (HGPIN). - Chronic inflammation and basal cell hyperplasia. Ancillary Studies: Not performed Clinical History: Please make reference to previous specimen ([id number]), right prostate, apex, mid and base, core biopsies with diagnosis of prostatic adenocarcinoma and left prostate, apex and mid, core biopsies with diagnosis of atypical small acinar proliferation. PATHOLOGIC STAGE: pT2 pN0 pMx The above summary is in compliance with [employer] [place] [employer] (CAP) Cancer Protocols Checklist and [place] [employer] Committee on Cancer (AJCC), Staging Manual, 8th Ed. Case has been reviewed in consultation with Dr. Tinajero who concurs with the above diagnosis. IDC:[email or web address] MICROSCOPIC DESCRIPTION Slides are reviewed. GROSS DESCRIPTION A - Received in fixative is one container labeled with the patient's name and designated fat over prostate. The specimen consists of a piece of adipose tissue measure 4.0 x 3.0 x 0.3 cm. No mass lesion is identified. The entire specimen is submitted in 2 cassettes. B - Received in fixative is one container labeled with the patient's name and designated left pelvic lymph node. The specimen consists of multiple irregular fragments of yellow adipose tissue that in aggregate measure 3.5 x 3.0 x 1.0 cm. Multiple nodules consistent lymph nodes are identified measuring 0.5 x 1.5 cm in greatest dimension. The specimen is totally submitted in three cassettes as follows: 1 - one bisected lymph node, 2 - multiple lymph nodes, 3 - the rest of the specimen. C - Received in fixative is one container labeled with the patient's name and designated right pelvic lymph node. The specimen consists of adipose tissue measuring 4.5 x 3.0 x 2.0 cm. Two nodules consistent with lymph nodes are identified. Sections of the lymph node reveal fatty cut surfaces. The entire specimen is submitted in four cassettes as follows 1-2 - one serially sectioned lymph node, 3 - one bisected lymph node, 4 - rest of the specimen. D- Received in fixative is one container labeled with the patient's name and designated prostate. The specimen consists of a radical prostatectomy specimen consisting of prostate and bilateral seminal vesicles and vas deferens. The specimen weighs 53.5 gm. The prostate measures 4 cm transversely, 3.5 cm anterior-posteriorly and 4 cm craniocaudally. The right seminal vesicle measures 2.5 x 1.0 x 1.0 cm and right vas deferens measures 3 cm in length and 0.5 cm in diameter. The left seminal vesicle measures 3.0 x 1.0 x 0.5 cm and the left vas deferens measures 2 cm in length and 0.5 cm in diameter. The prostate is inked as follows: anterior surface - yellow, posterior surface - black, right lateral surface - blue, left lateral surface - green. The bilateral seminal vesicles and vas deferens are inked as follows: Posterior surface bilateral seminal vesicle and vas deferens - black, anterior surface right seminal vesicle and vas deferens - blue and anterior left seminal vesicle and vas deferens - green. Sections do not reveal any obvious well-defined mass lesions. Clinical Nurse Reviewer sections are submitted in 20 cassettes as follows: 1 - right seminal vesicle and vas deferens, 2 - left seminal vesicle and vas deferens, 3 - apical (urethral) margin, enface, 4 - bladder base and basal portion of prostate margin, enface, 5-8 - apical portion prostate, 9-14 - middle portion prostate, 15-20 - basal portion prostate. / SJ:bl 10/13/23 TC:0 CPT: 29786, 26717 x2, 61889
[2023-10-12] MEDS: Cefazolin 2 GM in 0.9% Normal Saline (100mL Bag) 100 ML IV (07:32)
[2023-10-12] MEDS: Bupivacaine Mpf 0.5% 30 ML VIAL (11:31)
--- NOTE | 2023-10-12 11:34 | PCM.OPRPT ---
Report of Operation Date of Procedure: 10/12/23 Pre-Operative Diagnosis: Prostate cancer Post-Operative Diagnosis: The same Surgery/Procedure Performed:: Laparoscopic robotic assisted radical prostatectomy with bilateral nerve sparing bilateral pelvic lymph node dissection, left direct inguinal hernia repair Description of Surgical Findings:: Patient presented to the hospital for treatment of his prostate cancer with radical prostatectomy. In the preoperative setting we discussed the options of management for his prostate cancer including active surveillance, radiation treatments, radioactive seeds, and radical robotic prostatectomy. We discussed the side effects of surgery including the potential to lose erections. We discussed the potential to have bladder control problems with stress incontinence which can be temporary or permanent. We discussed the risk of the surgery including the risk of general anesthetic, risk of bleeding, risk of infection, and risk of formation of hernia either incisional hernia or inguinal hernia. After long discussion with the patient the preoperative setting and also reviewed this in the preop area patient signed the consent form and we proceeded with a radical prostatectomy. Patient was taken back to the operating room he was identified, time out procedure was performed and he was placed supine on the table he underwent general anesthesia with intubation. The abdomen was shaved prepped and draped in usual sterile fashion as well as the penis and testicles. A 16 Spanish catheter was placed into the bladder with clear return of urine. I then made an incision in the umbilicus and dissected down to the fascia advance a Veress needle into the peritoneal cavity and insufflated the peritoneal cavity with CO2 gas. I then placed a 12 mm trocar above the umbilicus. I then visualized the placement of the rest of the trochars, I placed a right arm robotic trocar, and air seal trocar, a suction port 5 mm trocar. And on the left side I placed 2 robotic arms. Once all the trochars were in placed the patient was put in steep Trendelenburg. And the robot was docked the arms were docked and then I placed the 0 degree camera through the robotic arm and also used a 30 degree camera during certain parts of the case. I used scissors in the right arm, prograsp in the third arm, and a bipolar in the second arm. Initial dissection was to free the sigmoid colon off the lateral wall this was done by meticulously dissecting off the peritoneum and the sigmoid colon off the left lateral wall. This then allowed the prograsp to retract the sigmoid colon out of the pelvis. I then went below the bladder and identified the vas deferens incised the peritoneum over the vas deferens and traced the vas deferens below the bladder to the prostate and identified the right and left vasa deferens. Below behind the vas deferens then the seminal vesicles were identified. I then dissected the seminal vesicle free using pinpoint electrocautery and then we identified the other seminal vesicle and then dissected this using pinpoint electrocautery I then elevated the vas deferens and several vesicles off the prostate and was able to sweep the Denonvilliers' fascia off the prostate posteriorly all the way up to the apex of the prostate. Working laterally I made sure I went as lateral as possible to sweep the Denonilliers' fascia off the posterior aspect of the prostate and worked my way back, I then transected the vas deferens and the left and right side the seminal vesicles were then dissected free. And then I pulled out of the pelvis. At this point the bladder was dropped creating the space of Retzius with the bladder on traction with the fourth arm. Using electrocautery I dissected in the anterior peritoneal fascia and then created the space of Retzius dissecting towards the prostate. The pelvic lymph node dissection was then performed both side. Rhe right pelvic lymph nodes the nodes that were taken on the right side extended from the right iliac artery lateral pelvic sidewall up to the junction of the artery and the lymph nodes and down to the obturator nerve and then also below the dry cleaning machine operator helper nerve all the lymph nodes were removed during to remove those lymph nodes we used clips and electrocautery to control small blood vessels and also the control lymphatic. I then went to the left side and again did an extensive lymph node dissection starting of the left iliac artery extending the left iliac vein on the lateral sidewall down to the obturator nerve and the left side beyond the dry cleaning machine operator helper nerve down further behind it cleaning out all the lymphatic tissue all this tissue was sent off as a specimen we use clips and electrocautery during the dissection. At the end we cleaned out all the lymphatic tissue on the right pelvic wall and all the lymphatic tissue in the left pelvic wall. The prostate was then cleaned of the fat over the prostate and the fourth arm was used to retract the bladder and place traction. I then identified the endopelvic fascia that was overlying the prostate on the right side I incised endopelvic fascia and wwept the levator muscles off the prostate all the way to the apex on the right side, I then worked my way anterior to the prostate then transected to the puboprostatic ligament and the underlying dorsal vein complex was not injured. I then went to the other side and identified the endopelvic fascia in the left side incised in a fashion the left side and swept the levator muscles off the prostate on the left side all the way up to the apex the puboprostatic ligament on the left side was then dissected and transected I then freed up the fascia overlying the dorsal vein complex. I then used the prograsp to encircled the dorsal vein complex with the prograsp and then switched over to the right and left needle petrol tanker driver and suture ligated the dorsal vein complex above the prograsp. The prograsp was then placed back in the bladder and put back on traction I then identified the junction between the bladder and the prostate and dissected down between the bladder and the prostate untilI came across the catheter we then dissected posteriorly to the bladder and prostate to free the prostate and the bladder off each other and the muscles between the bladder and the prostate was then cauterized to free up the bladder. I then went on top of the prostate and identified the endopelvic fascia on top of the prostate this was incised all the way to the apex and then we swept the endopelvic fascia off the prostate laterally and then identified the plane between endopelvic fascia and the prosthetic pseudocapsule and swept the fascia laterally until reaching the course of the neurovascular bundles and then released the neurovascular bundles off the prostate laterally all the way back in a retrograde fashion back to the junction of the pedicles then the prostate was placed on traction with the fourth arm pulling the prostate laterally identified the pedicle to the prostate between the seminal vesicles and the and the neurovascular bundle and this was taken using sequential small hemolocks. After the pedicle was taken the I then dissected underneath the prostate sweeping the neurovascular bundle off the prostate we able to follow the nice smooth plane between the neurovascular bundle and the pseudocapsule all the way to the apex once this was identified we swept this up all the way up to the apex and there was perfect nerve sparing on the right side. Then went to the left side the prostate identified the endopelvic fascia over the left side of the prostate I incised the endopelvic fascia all the way to the apex and then swept this off laterally I then released the neurovascular bundles on the left side of the prostate sweeping him off the prostate laterally I then elevated the prostate up up with the prostate and traction identified the pedicle to the prostate on the left side and then the pedicles taken with sequential Hem-o-anita clips I then was able to dissected the neurovascular bundle off the left posterior aspect the prostate this was a perfect dissection all the way up on the left side following the pseudocapsule all the way up the left side until we reached the apex of the prostate. After the both the neurovascular bundles has been swept off the posterior to the prostate I then went above and transected the dorsal vein complex there was minimal to no bleeding but then dissected down to the urethra and circumfencial dissected around the urethra I then switched the right and left arm with the needle drivers and I suture-ligated the dorsal vein complex again just to ensure that there was no bleeding from the dorsal vein complex. I then transected through the urethra with scissors and the prostate was then freed and released off the prostate bed and put an Endo Catch bag. At this point the bladder neck was reconstructed and then an anastomosis was performed between the prostate and the bladder with a 3 oh V-Loc stitch in a running fashion starting from the bladder neck at the 6 o'clock position working to the 12 o'clock position with continuous stitches to complete a perfect anastomosis between the bladder and the prostate. I then placed a new catheter into the bladder, an 18 Spanish nooksack tip catheter flushed the bladder and there was no leakage from the anastomosis I put 10 cc in the balloon and pulled it up pulled back gently. I then ensured that there was no bleeding from the dorsal vein complex no bleeding from the neurovascular bundles FloSeal was placed as necessary once hemostasis was ensured and adequate then I placed the bladder back in position in the pelvis the prostate was exchanged to the camera port I closed the air seal port with a 10 12 Wilfredo Zarco stitch. After completing the prostatectomy and anastomosis a inguinal hernia was then recognized in the left inguinal area, this was seen at beginning the case but is I did repair this at the end of the case so the inguinal hernia we had the hernia sac reduced and then I placed a mesh plug medium size into the hernia sac. I then used the peritoneum on the bladder flap and placed back over the hernia defect and closed the bladder flap back up over that using a running 2 oh V-Loc stitch. After the hernia was repaired then I went to extract the prostate. And the extracted the prostate through the umbilicus. The robot was undocked all the ports were removed under direct visualization then closed the extraction site with 0 Vicryl with a CT1 needle once the extraction site was closed. I then closed all the incision with subcuticular stitches with 4-0 Monocryl and then bandages were placed on the incisions catheter was flushed to make sure it was draining well there was no clots and it was crystal clear patient's anesthetic was reversed he was extubated and taken back to the PACU in stable condition all the needles and sponges and instruments were accounted for. Blood loss was minimal and the drain was a 18 Spanish Roberson catheter. No other surgical drain was left. I was present during the entire case. Surgeon: Jaun Pham Type of Anesthesia: General Drains: 18 fr roberson Estimated Blood Loss (mL): 400ml Admit VTE Documentation VTE Present on Admission: No VTE Mechan Device Prophylaxis: SCD's VTE Pharm Prophylaxis ordered?: No
[2023-10-12] MEDS: 0.9% Saline Lock 10 ML Syringe IV (14:52)
[2023-10-12] MEDS: Ketorolac 15 MG/ML Vial IV ×2 (14:52→20:03)
[2023-10-12] MEDS: Ciprofloxacin 400 MG/200 ML BAG 200 MG IV (15:53)
[2023-10-12] MEDS: Docusate Sodium 100 MG Capsule 200 MG PO (20:04)
[2023-10-12] MEDS: Lactated Ringers 1,000 ML 125 ML IV (20:04)
[2023-10-13] MEDS: Ketorolac 15 MG/ML Vial IV ×2 (02:02→06:36)
[2023-10-13] MEDS: Lactated Ringers 1,000 ML 125 ML IV (02:02)
[2023-10-13] MEDS: Ciprofloxacin 400 MG/200 ML BAG 200 MG IV (02:03)
[2023-10-13 02:05] VITALS: BP 111/69; PULSE 78; RESP 18; TEMP 36.9; O2SAT 94
--- NOTE | 2023-10-13 07:23 | PCM.PN.GU ---
Subjective Subjective Status post radical prostatectomy for prostate cancer doing well, he can be out of bed ambulate plan to discharge home today with Galarza catheter Objective Data Objective Data Vital Signs: Vital Signs Temp Pulse Resp BP Pulse Ox O2 Del Method O2 Flow Rate 98.4 F 78 18 111/69 94 CPAP 3 10/13/23 02:05 10/13/23 02:05 10/13/23 02:05 10/13/23 02:05 10/13/23 02:05 10/13/23 02:05 10/12/23 15:12 Oxygen Flow Rate (L/min) 3 Oxygen Delivery Method CPAP Weight: 121.563 kg Body Mass Index (BMI) 38.4 Intake & Output: Intake and Output for Last 24 Hours 10/11/23 10/12/23 10/13/23 23:59 23:59 23:59 Intake Total 2512 / 2512 945.83 / 945.83 Output Total 1300 / 1300 350 / 350 Balance 1212 / 1212 595.83 / 595.83 Lab / Micro Data 09/30/23 08:45
[2023-10-13 07:33] VITALS: O2SAT 95
[2023-10-13 08:00] VITALS: BP 102/62; PULSE 73; RESP 14; TEMP 36.6; O2SAT 93
[2023-10-13] MEDS: Docusate Sodium 100 MG Capsule 200 MG PO (08:40)
[2023-10-13] MEDS: DEXTROAMPHETAMINE SULFATE 10 MG PO (08:41)
--- NOTE | 2023-10-13 09:15 | CM.UR ---
Pt states that he feels safe and comfortable DC home today. Pt states that he will be going home with a Galarza and states that the RN will be providing him education prior to DC. Pt denies any further needs at this time. Pt states that he will drive himself home.
[2023-10-13] MEDS: HYDROcodone Bitartrate/Apap 5/325 Tablet PO (11:51)
--- NOTE | 2023-10-13 12:28 | PHA.DC_ITS ---
Pharmacy [facility] Pharm[facility] Service has performed discharge medication reconciliation and counseling for this patient. The patient's discharge medication list was reviewed for discrepancies and discrepancies were resolved. The patient was counseled on the following discharge medications and changes in medications for homegoing were reviewed. 1. CIPRO 2. OXYCODONE 3. DOCSATE The Reason for Use, instructions for use, and potential side effects were reviewed for all new medications. The patient's questions regarding all of their medications were answered. The patient was able to verbally demonstrate an understanding of their discharge medications. The patient was counselled by Radu Sauer PharmD Candidate
== END 2023-10-13 12:31 | disposition home or self-care (01) ==
LOC: SDC 05:39 → AC 05:39 → MS3 12:00
PROVIDERS: Anesthesiology; PCP Family Medicine; Referring Provider Urology; Visit Provider Urology
PROC: 0VT04ZZ Resection of Prostate, Percutaneous Endoscopic Approach (ICD-10-PCS; CPT 55866; principal; 2023-10-12 07:10)
DX: C61 Malignant neoplasm of prostate (principal); R73.03 Prediabetes; G47.419 Narcolepsy without cataplexy; K40.90 Unilateral inguinal hernia, without obstruction or gangrene, not specified as recurrent; Z79.899 Other long term (current) drug therapy
CPT/HCPCS: 55866; S2900; 49505; 00865; 36415; 85027; 86850; 86900; 86901; 88305; 88309; 93005; 94668; 99252; J7120; A4216; C1781; G0463; J0744; J2405

== ENCOUNTER → 2023-12-06 | Outpatient (CLI) | payer MEDICARE, BC, SELFPAY ==
[2023-12-06 15:18] LABS: PSA,Total- Diagnostic < 0.01 ng/mL (0.0-4.0)
== END | disposition home or self-care (01) ==
LOC: LAB 13:23
PROVIDERS: PCP Family Medicine; Referring Provider Urology; Visit Provider Urology
DX: C61 Malignant neoplasm of prostate (principal)
CPT/HCPCS: 36415; 84153

== ENCOUNTER → 2024-03-06 | Outpatient (CLI) | payer MEDICARE, BC, SELFPAY ==
[2024-03-06 14:45] LABS: PSA,Total- Diagnostic < 0.01 ng/mL (0.0-4.0)
== END | disposition home or self-care (01) ==
LOC: LAB 13:47
PROVIDERS: PCP Family Medicine; Referring Provider Urology; Visit Provider Urology
DX: C61 Malignant neoplasm of prostate (principal)
CPT/HCPCS: 36415; 84153

== ENCOUNTER → 2024-07-09 | Outpatient (CLI) | payer MEDICARE, BC, SELFPAY ==
[2024-07-09 15:28] LABS: PSA,Total- Diagnostic < 0.01 ng/mL (0.0-4.0)
== END | disposition home or self-care (01) ==
LOC: LAB 14:00
PROVIDERS: PCP Family Medicine; Referring Provider Nurse Practitioner; Visit Provider Nurse Practitioner
DX: C61 Malignant neoplasm of prostate (principal)
CPT/HCPCS: 36415; 84153

== ENCOUNTER → 2024-08-15 | Outpatient (CLI) | payer MEDICARE, BC, SELFPAY ==
--- NOTE | 2024-08-15 14:49 | NEURO ---
NCS and/or EMG Patient Report Ordering Doctor: Darvin Acosta DATE OF SERVICE: 08/15/24 Sonny presents for electrodiagnostic testing of the right upper limb. He reports tingling in the right hand. Electrodiagnostic findings: Right median motor nerve demonstrates normal distal latency, amplitude and conduction velocity. Normal right ulnar motor response. Normal median ulnar F?waves. Borderline prolonged right median sensory latency at the wrist. Normal right median palmar latency. Normal ulnar and radial sensory sponsors. Needle EMG testing was performed the right upper limb. All muscles tested showed no evidence of denervation with normal motor unit action potentials. Needle EMG testing was performed in the right upper limb. All muscles tested showed no evidence of denervation with normal motor unit action potentials. Electrodiagnostic impression: This is a normal electrodiagnostic study of the right upper limb. There is no definitive electrodiagnostic evidence for median neuropathy, including carpal tunnel syndrome. There is no electrodiagnostic evidence for cervical radiculopathy. Multi Select Codes Neurology Neurology Interp Codes: 44289-97 Musc test done w/n test comp (interp) and 51440-09 Nrv cndj test 7-8 studies (interp)
== END | disposition home or self-care (01) ==
LOC: PSN 14:14
PROVIDERS: PCP Family Medicine; Referring Provider Family Medicine; Visit Provider Family Medicine
DX: R20.2 Paresthesia of skin (principal)
CPT/HCPCS: 95886; 95910

== ENCOUNTER → 2024-11-05 | Outpatient (CLI) | payer MEDICARE, BC, SELFPAY ==
[2024-11-05 17:13] LABS: PSA,Total- Diagnostic < 0.02 ng/mL (0.00-4.00)
== END | disposition home or self-care (01) ==
PROVIDERS: PCP Family Medicine; Referring Provider Nurse Practitioner; Visit Provider Nurse Practitioner
DX: C61 Malignant neoplasm of prostate (principal)
CPT/HCPCS: 36415; 84153

== ENCOUNTER → 2025-05-13 | Outpatient (CLI) | payer MEDICARE, BC, SELFPAY ==
[2025-05-13 15:20] LABS: PSA,Total- Diagnostic < 0.02 ng/mL (0.00-4.00)
== END | disposition home or self-care (01) ==
LOC: LAB 14:09
PROVIDERS: PCP Family Medicine; Referring Provider Urology; Visit Provider Urology
DX: C61 Malignant neoplasm of prostate (principal)
CPT/HCPCS: 36415; 84153